=== PATIENT | female | born 1970 | race Hispanic/Latino ===

== ENCOUNTER → 2018-03-11 | Outpatient (CLI) | payer OTHER ==
--- NOTE | 2018-03-11 17:30 | Diagnostic Imaging Report ---
EXAM: Transabdominal and Transvaginal Pelvic Ultrasound INDICATION: \[id number] \[id number] \S\EXCESSIVE BLEEDING IN THE PREMENOPAUSAL PERIOD COMPARISON: None TECHNIQUE: Grayscale transverse and sagittal transabdominal and transvaginal images were obtained of the pelvis. Transvaginal imaging was medically necessary to better evaluate the endometrium and the adnexa. CLINICAL HISTORY: 47 year old A0; last menstrual period: 02/15/2018. FINDINGS: Uterus Orientation: Normal Size: 10.7 x 3.2 x 4.9 cm, Normal Mass: 3.3 x 2.0 x 2.4 cm subserosal fibroid within the left side of the uterus. Cervix: 0.9 cm hypoechoic structure within the cervix may represent a low uterine fibroid versus high location for nabothian cysts. Endometrium: Thickness: 1 cm, Normal. Appearance: Homogeneous echotexture without focal thickening. Right ovary: Nonvisualized Left ovary: Nonvisualized Adnexa: Normal Cul-de-sac: No free fluid IMPRESSION: Small subserosal fibroid, measuring up to 3.3 cm. Normal thickness of the endometrium. Ovaries not visualized. No fluid collections or masses within the pelvis. Signed by: Dr. Jessica Jacobo M.D. on 03/11/2018 5:27 PM
== END ==
LOC: US 16:01
PROVIDERS: ATTEND Internal Medicine
DX: N92.4 Excessive bleeding in the premenopausal period (principal)
CPT/HCPCS: 76856

== ENCOUNTER → 2018-06-03 | Outpatient (CLI) | payer OTHER ==
--- NOTE | 2018-06-15 08:48 | Diagnostic Imaging Report ---
#[id number] - [id number] #BILATERAL DIGITAL SCREENING MAMMOGRAM WITH CAD: 06/03/2018 CLINICAL: Routine screening. Comparison is made to exam dated: 05/06/2017 mammogram - [facility]. Current study contains 4 films. There are scattered fibroglandular elements in both breasts. Current study was also evaluated with a Computer Aided Detection (CAD) system. There are benign calcifications in both breasts. There also are benign intramammary nodes in both breasts. No significant masses, calcifications, or other findings are seen in either breast. There has been no significant interval change. IMPRESSION: BENIGN There is no mammographic evidence of malignancy. A 1 year screening mammogram is recommended. The patient will be notified by letter of the results. Mazin hood/dorothy:06/11/2018 15:23:37 Fire Alarm Technician: Jana HILL(Arnie)([place]), [facility] letter sent: Compared to Prior B9 Mammogram BI-RADS: 2 Benign
== END ==
LOC: MAMMO 14:53
PROVIDERS: ATTEND Internal Medicine
DX: Z12.31 Encounter for screening mammogram for malignant neoplasm of breast (principal)
CPT/HCPCS: 77067

== ENCOUNTER → 2021-02-25 | Outpatient (CLI) | payer OTHER | LOC: MAMMO 09:51 | PROVIDERS: ATTEND Student in an Organized Health Care Education/Training Program | DX: Z12.31 Encounter for screening mammogram for malignant neoplasm of breast (principal) | CPT/HCPCS: 77067 ==